=== PATIENT | male | born 1955 | race Two or more races ===

== ENCOUNTER → 2023-12-05 | Day surgery (SDC) | payer MEDICAID, OTHER ==
[~2023-12-05] VITALS: Ht 157.5 cm; Wt 68.0 kg
[~2023-12-05] MED LIST: ASPI-1497 PO; ATOR-2 PO; BALANCED SALT IRRIG SOLN 15ML ONE; BALANCED SALT IRRIG SOLN COMB1 500ML OP NR; BALANCED SALT IRRIG SOLN COMB1 500ML OP ONE; BENA-8 PO; CLOP-31 PO; CYCLOPENTOLATE HCL 1% OPHTH DROPS 2ML RIGHTEYE NR; CYCLOPENTOLATE HCL 1% OPHTH DROPS 2ML RIGHTEYE ONE; FENTANYL CITRATE/PF 50MCG/ML 2ML VIAL ONE; HYALURONATE SODIUM 10MG/ML 0.85ML SYRINGE IO ONE; HYDROMORPHONE HCL/PF 1MG/ML INJ IV PRN; LABETALOL 5MG/ML 4ML INJ IV PRN; LACTATED RINGERS 1,000 ML IV ONE; LACTATED RINGERS 1,000 ML IV SCH; MEPERIDINE HCL/PF 25MG/ML CPJ IV PRN; METO-539 PO; MIDAZOLAM HCL 2 MG/2 ML VIAL ONE; ONDANSETRON HCL 4MG/2ML INJ IV PRN; PHENYLEPHRINE HCL 10% OPHTH DROPS 5ML RIGHTEYE NR; PHENYLEPHRINE HCL 10% OPHTH DROPS 5ML RIGHTEYE ONE; PROPOFOL 200MG/20ML VIAL IV ONE; TROPICAMIDE 1% OPHTH DROPS 15ML RIGHTEYE NR; TROPICAMIDE 1% OPHTH DROPS 15ML RIGHTEYE ONE
[2023-12-05] MEDS: LACTATED RINGERS 1,000 ML IV SCH (07:41)
== END | disposition home or self-care (01) ==
LOC: OR 06:23
PROVIDERS: ATTEND Ophthalmology
DX: H25.89 Other age-related cataract (principal); I10 Essential (primary) hypertension; I25.10 Atherosclerotic heart disease of native coronary artery without angina pectoris; I25.2 Old myocardial infarction; E78.5 Hyperlipidemia, unspecified; Z79.82 Long term (current) use of aspirin; Z79.899 Other long term (current) drug therapy; Z98.890 Other specified postprocedural states
CPT/HCPCS: 66984; J3010; J3490 ×4; J2250; J2704; J7120; V2632